=== PATIENT | female | born 1940 | race Caucasian/White ===

== ENCOUNTER → 2018-11-20 | Outpatient (CLI) | payer OTHER | LOC: HYPER 07:04 | DX: E11.622 Type 2 diabetes mellitus with other skin ulcer (principal); L97.315 Non-pressure chronic ulcer of right ankle with muscle involvement without evidence of necrosis; I70.233 Atherosclerosis of native arteries of right leg with ulceration of ankle; L40.9 Psoriasis, unspecified; E11.51 Type 2 diabetes mellitus with diabetic peripheral angiopathy without gangrene; E03.9 Hypothyroidism, unspecified; I11.0 Hypertensive heart disease with heart failure; I50.9 Heart failure, unspecified; I25.110 Atherosclerotic heart disease of native coronary artery with unstable angina pectoris; I48.91 Unspecified atrial fibrillation; G47.30 Sleep apnea, unspecified; J44.9 Chronic obstructive pulmonary disease, unspecified; K21.9 Gastro-esophageal reflux disease without esophagitis; M62.81 Muscle weakness (generalized); F32.9 Major depressive disorder, single episode, unspecified; F41.9 Anxiety disorder, unspecified; Z86.711 Personal history of pulmonary embolism; Z87.891 Personal history of nicotine dependence; Z86.718 Personal history of other venous thrombosis and embolism ==

== ENCOUNTER → 2018-11-27 | Outpatient (CLI) | payer OTHER | LOC: HYPER 06:40 | DX: E11.622 Type 2 diabetes mellitus with other skin ulcer (principal); I70.233 Atherosclerosis of native arteries of right leg with ulceration of ankle; L97.315 Non-pressure chronic ulcer of right ankle with muscle involvement without evidence of necrosis; L40.9 Psoriasis, unspecified; E11.51 Type 2 diabetes mellitus with diabetic peripheral angiopathy without gangrene; E03.9 Hypothyroidism, unspecified; I25.110 Atherosclerotic heart disease of native coronary artery with unstable angina pectoris; I48.91 Unspecified atrial fibrillation; I11.0 Hypertensive heart disease with heart failure; I50.9 Heart failure, unspecified; I25.10 Atherosclerotic heart disease of native coronary artery without angina pectoris; G47.30 Sleep apnea, unspecified; J44.9 Chronic obstructive pulmonary disease, unspecified; K21.9 Gastro-esophageal reflux disease without esophagitis; F32.9 Major depressive disorder, single episode, unspecified; F41.9 Anxiety disorder, unspecified; Z87.891 Personal history of nicotine dependence; Z86.711 Personal history of pulmonary embolism; Z86.718 Personal history of other venous thrombosis and embolism ==

== ENCOUNTER → 2018-12-04 | Outpatient (CLI) | payer OTHER | LOC: HYPER 06:35 | DX: E11.622 Type 2 diabetes mellitus with other skin ulcer (principal); I70.233 Atherosclerosis of native arteries of right leg with ulceration of ankle; L97.315 Non-pressure chronic ulcer of right ankle with muscle involvement without evidence of necrosis; L40.9 Psoriasis, unspecified; E11.51 Type 2 diabetes mellitus with diabetic peripheral angiopathy without gangrene; E03.9 Hypothyroidism, unspecified; G47.30 Sleep apnea, unspecified; I25.110 Atherosclerotic heart disease of native coronary artery with unstable angina pectoris; I48.91 Unspecified atrial fibrillation; I11.0 Hypertensive heart disease with heart failure; I50.9 Heart failure, unspecified; J44.9 Chronic obstructive pulmonary disease, unspecified; K21.9 Gastro-esophageal reflux disease without esophagitis; M62.81 Muscle weakness (generalized); F32.9 Major depressive disorder, single episode, unspecified; F41.9 Anxiety disorder, unspecified; Z87.891 Personal history of nicotine dependence; Z86.711 Personal history of pulmonary embolism; Z86.718 Personal history of other venous thrombosis and embolism ==

== ENCOUNTER 2018-12-10 11:04 | Observation (INO) | payer OTHER ==
[~2018-12-10] VITALS: Ht 160 cm; Wt 72.1 kg
[2018-12-10 12:00] VITALS: BP 160/64
[2018-12-10] MEDS ORDERED: PRINCIPEN500 MG PO (12:27)
[2018-12-10] MEDS ORDERED: ELIQUIS5 MG PO (12:28)
[2018-12-10] MEDS ORDERED: LIPITOR 20 MG T20 M1 PO (12:29)
[2018-12-10] MEDS ORDERED: BUSPIRONE HCL10 MG PO (12:29)
[2018-12-10] MEDS ORDERED: PROZAC20 M1 PO (12:30)
[2018-12-10] MEDS ORDERED: DOXYCYCLINE 10100 MG PO (12:30)
[2018-12-10] MEDS ORDERED: FOLIC ACID1 MG PO (12:31)
[2018-12-10] MEDS ORDERED: NEURONTIN 400400 M1 PO (12:31)
[2018-12-10] MEDS ORDERED: SYNTHROID75 MCG PO (12:32)
[2018-12-10] MEDS ORDERED: HYDROXYCHLOROQ200 M1 PO (12:32)
[2018-12-10] MEDS ORDERED: METHOTREXATE 22.5 MG PO (12:33)
[2018-12-10] MEDS ORDERED: LOPRESSOR25 PO (12:34)
[2018-12-10] MEDS ORDERED: NITROGLYCERIN0.4 MG SUBLING (12:34)
[2018-12-10] MEDS ORDERED: OXYCONTIN10 M1 PO (12:35)
[2018-12-10] MEDS ORDERED: PERCOCET 7.5-31 EACH PO (12:36)
[2018-12-10] MEDS ORDERED: DEMADEX20 MG PO (12:36)
[2018-12-10] MEDS ORDERED: SPIRONOLACTONE25 M1 PO (12:36)
[2018-12-10 17:23] VITALS: BP 154/63
[2018-12-10 19:17] VITALS: BP 120/51
--- NOTE | 2018-12-10 19:55 | NUR ---
ASSUMED CARE OF PT AT APPROX 1730. PT WAS AN OBSERVATION PT FROM IR. PT VITALS WNL AND WAS SINUS ARHYTHMIA WITH 1D, BBB ON TELEMETRY. PT'S LEFT GROIN SITE C/D/I, NO BLEEDING/HEMATOMA. PEDAL PULSES WERE DOPPLER PRESENT.
[2018-12-11 01:15] VITALS: BP 117/46
[2018-12-11 03:22] VITALS: BP 112/49
--- NOTE | 2018-12-11 04:28 | NUR ---
ASSESSMENT DOCUMENTED.PT RESTING IN NO ACUTE DISTRESS.A/P IR PROCEDURE. LEFT GROIN WITH MINIMAL DRY PINK DRAINAGE(OLD)OTHERWISE CDI,NO HEMATOMA.VSS.MEDICATED WITH PAIN MEDS FOR IDA LES.PULSES PRESENT 1+ PEDAL PULSES.DRESSING INTACT TO RIGHT FOOT.UP WITH ASSIST TO BR,VOIDING ADEQUATELY.PT DENIES ANY OTHER NEEDS AT THIS TIME.PT TO DISCHARGE TO [facility] THIS AM.WILL CONT TO MONITOR PER POC.
[2018-12-11 07:50] VITALS: BP 133/53
--- NOTE | 2018-12-11 10:42 | NUR ---
PT. DISCHARGING TODAY BACK TO [facility] FAXED DC ORDERS/SUMMARY TO FACILITY SPOKE WITH MAYURI IN ADM SHE RECEIVED DC ORDERS AND SET UP TRANSPORT VIA VAN FOR 1400 TODAY. NOTIFIED PT'S SON (DYLAN) OF DC AND TIME OF TRANSPORT. UNIT NOTIFIED AND CHART COPY PER US. RN TO CALL REPORT TO [phone].
[2018-12-11 11:20] VITALS: BP 139/55
--- NOTE | 2018-12-11 14:04 | NUR ---
assessment as charted - meds as per oct - diet and fluids. up to the bathroom with standby assist. no co's of nausea - pt with co's of chroninc pain given schedueled meds with relief. pt transfered via wheelchair van back to facility this afternoon. no co's at time of transfer - report called prior to patient departure.
== END 2018-12-11 14:04 ==
LOC: SPEC 11:04 → 2N 17:11
PROVIDERS: ADMIT Nuclear Medicine Nuclear Cardiology
DX: I73.9 Peripheral vascular disease, unspecified (principal); I25.10 Atherosclerotic heart disease of native coronary artery without angina pectoris; L97.919 Non-pressure chronic ulcer of unspecified part of right lower leg with unspecified severity; I70.1 Atherosclerosis of renal artery; I10 Essential (primary) hypertension; Z79.899 Other long term (current) drug therapy; Z79.01 Long term (current) use of anticoagulants

== ENCOUNTER → 2018-12-18 | Outpatient (CLI) | payer OTHER ==
[~2018-12-18] MED LIST: BUSPIRONE HCL10 MG PO; DEMADEX20 MG PO; DOXYCYCLINE 10100 MG PO; ELIQUIS5 MG PO; FOLIC ACID1 MG PO; HYDROXYCHLOROQ200 M1 PO; LIPITOR 20 MG T20 M1 PO; LOPRESSOR25 PO; METHOTREXATE 22.5 MG PO; NEURONTIN 400400 M1 PO; NITROGLYCERIN0.4 MG SUBLING; OXYCONTIN10 M1 PO; PERCOCET 7.5-31 EACH PO; PRINCIPEN500 MG PO; PROZAC20 M1 PO; SPIRONOLACTONE25 M1 PO; SYNTHROID75 MCG PO
== END ==
LOC: HYPER 07:01
DX: E11.622 Type 2 diabetes mellitus with other skin ulcer (principal); I70.233 Atherosclerosis of native arteries of right leg with ulceration of ankle; L97.315 Non-pressure chronic ulcer of right ankle with muscle involvement without evidence of necrosis; E11.51 Type 2 diabetes mellitus with diabetic peripheral angiopathy without gangrene; E03.9 Hypothyroidism, unspecified; I25.110 Atherosclerotic heart disease of native coronary artery with unstable angina pectoris; L40.9 Psoriasis, unspecified; G47.30 Sleep apnea, unspecified; I48.91 Unspecified atrial fibrillation; I11.0 Hypertensive heart disease with heart failure; I50.9 Heart failure, unspecified; I27.20 Pulmonary hypertension, unspecified; J44.9 Chronic obstructive pulmonary disease, unspecified; K21.9 Gastro-esophageal reflux disease without esophagitis; M62.81 Muscle weakness (generalized); F32.9 Major depressive disorder, single episode, unspecified; F41.9 Anxiety disorder, unspecified; Z87.891 Personal history of nicotine dependence; Z86.718 Personal history of other venous thrombosis and embolism

== ENCOUNTER → 2019-01-01 | Outpatient (CLI) | payer OTHER | LOC: HYPER 06:43 | DX: E11.622 Type 2 diabetes mellitus with other skin ulcer (principal); I70.233 Atherosclerosis of native arteries of right leg with ulceration of ankle; L97.315 Non-pressure chronic ulcer of right ankle with muscle involvement without evidence of necrosis; E11.51 Type 2 diabetes mellitus with diabetic peripheral angiopathy without gangrene; I25.110 Atherosclerotic heart disease of native coronary artery with unstable angina pectoris; I11.0 Hypertensive heart disease with heart failure; I50.9 Heart failure, unspecified; L40.9 Psoriasis, unspecified; R26.2 Difficulty in walking, not elsewhere classified; M62.81 Muscle weakness (generalized); I48.91 Unspecified atrial fibrillation; K21.9 Gastro-esophageal reflux disease without esophagitis; G47.30 Sleep apnea, unspecified; J44.9 Chronic obstructive pulmonary disease, unspecified; F32.9 Major depressive disorder, single episode, unspecified; F41.9 Anxiety disorder, unspecified; Z86.711 Personal history of pulmonary embolism; Z86.718 Personal history of other venous thrombosis and embolism; Z87.891 Personal history of nicotine dependence ==

== ENCOUNTER → 2019-01-22 | Outpatient (CLI) | payer OTHER | LOC: HYPER 06:53 | DX: E11.622 Type 2 diabetes mellitus with other skin ulcer (principal); I70.233 Atherosclerosis of native arteries of right leg with ulceration of ankle; L97.315 Non-pressure chronic ulcer of right ankle with muscle involvement without evidence of necrosis; S90.411A Abrasion, right great toe, initial encounter; L40.9 Psoriasis, unspecified; E11.51 Type 2 diabetes mellitus with diabetic peripheral angiopathy without gangrene; E03.9 Hypothyroidism, unspecified; G47.30 Sleep apnea, unspecified; I25.110 Atherosclerotic heart disease of native coronary artery with unstable angina pectoris; I48.91 Unspecified atrial fibrillation; I11.0 Hypertensive heart disease with heart failure; I50.9 Heart failure, unspecified; J44.9 Chronic obstructive pulmonary disease, unspecified; K21.9 Gastro-esophageal reflux disease without esophagitis; F32.9 Major depressive disorder, single episode, unspecified; F41.9 Anxiety disorder, unspecified; Z87.891 Personal history of nicotine dependence; Z86.711 Personal history of pulmonary embolism; Z86.718 Personal history of other venous thrombosis and embolism; X58.XXXA Exposure to other specified factors, initial encounter; Y93.89 Activity, other specified; Y92.89 Other specified places as the place of occurrence of the external cause; Y99.8 Other external cause status ==

== ENCOUNTER → 2019-02-05 | Outpatient (CLI) | payer OTHER | LOC: HYPER 06:32 | DX: E11.622 Type 2 diabetes mellitus with other skin ulcer (principal); L97.315 Non-pressure chronic ulcer of right ankle with muscle involvement without evidence of necrosis; S90.414D Abrasion, right lesser toe(s), subsequent encounter; E11.51 Type 2 diabetes mellitus with diabetic peripheral angiopathy without gangrene; I25.110 Atherosclerotic heart disease of native coronary artery with unstable angina pectoris; I11.0 Hypertensive heart disease with heart failure; I50.9 Heart failure, unspecified; L40.9 Psoriasis, unspecified; M62.81 Muscle weakness (generalized); I48.91 Unspecified atrial fibrillation; E03.9 Hypothyroidism, unspecified; G47.30 Sleep apnea, unspecified; K21.9 Gastro-esophageal reflux disease without esophagitis; R29.6 Repeated falls; J44.9 Chronic obstructive pulmonary disease, unspecified; F32.9 Major depressive disorder, single episode, unspecified; F41.9 Anxiety disorder, unspecified; Z86.711 Personal history of pulmonary embolism; Z91.81 History of falling; Z86.718 Personal history of other venous thrombosis and embolism; Z87.891 Personal history of nicotine dependence; X58.XXXD Exposure to other specified factors, subsequent encounter ==

== ENCOUNTER → 2019-03-03 | Outpatient (CLI) | payer OTHER | LOC: HYPER 02-19 06:16 | DX: E11.622 Type 2 diabetes mellitus with other skin ulcer (principal); L97.315 Non-pressure chronic ulcer of right ankle with muscle involvement without evidence of necrosis; E11.51 Type 2 diabetes mellitus with diabetic peripheral angiopathy without gangrene; S90.414D Abrasion, right lesser toe(s), subsequent encounter; I25.110 Atherosclerotic heart disease of native coronary artery with unstable angina pectoris; I11.0 Hypertensive heart disease with heart failure; I50.9 Heart failure, unspecified; L40.9 Psoriasis, unspecified; M62.81 Muscle weakness (generalized); I48.91 Unspecified atrial fibrillation; E03.9 Hypothyroidism, unspecified; G47.30 Sleep apnea, unspecified; K21.9 Gastro-esophageal reflux disease without esophagitis; R26.2 Difficulty in walking, not elsewhere classified; J44.9 Chronic obstructive pulmonary disease, unspecified; F32.9 Major depressive disorder, single episode, unspecified; F41.9 Anxiety disorder, unspecified; Z86.711 Personal history of pulmonary embolism; Z91.81 History of falling; Z86.718 Personal history of other venous thrombosis and embolism; Z87.891 Personal history of nicotine dependence; X58.XXXD Exposure to other specified factors, subsequent encounter ==

== ENCOUNTER → 2019-11-17 | Outpatient (CLI) | payer OTHER | LOC: SJCVCIMAG 11-11 11:29 | DX: I70.201 Unspecified atherosclerosis of native arteries of extremities, right leg (principal); I48.91 Unspecified atrial fibrillation; I10 Essential (primary) hypertension; E78.00 Pure hypercholesterolemia, unspecified; E11.00 Type 2 diabetes mellitus with hyperosmolarity without nonketotic hyperglycemic-hyperosmolar coma (NKHHC); Z95.1 Presence of aortocoronary bypass graft; Z96.653 Presence of artificial knee joint, bilateral; Z90.710 Acquired absence of both cervix and uterus; Z79.899 Other long term (current) drug therapy; Z87.891 Personal history of nicotine dependence ==